=== PATIENT | male | born 1995 | race Two or more races ===

== ENCOUNTER 2021-11-29 19:03 | Emergency (ER) | payer OTHER ==
[~2021-11-29] VITALS: Ht 172.7 cm; Wt 84.0 kg
[2021-11-29 19:12] VITALS: BP 124/82
[2021-11-29 21:08] LABS: HEPATITIS B SURFACE AB 109.6 mIU/mL
[2021-11-29 21:19] LABS: HEPATITIS B SURFACE ANTIGEN NEGATIVE
[2021-12-01 08:08] LABS: HIV SCREEN 4G Non Reactive (Non Reactive)
== END 2021-11-29 20:08 | disposition home or self-care (01) ==
LOC: ER 19:03
DX: Z77.21 Contact with and (suspected) exposure to potentially hazardous body fluids (principal)
CPT/HCPCS: 36415; 87389; 99281